=== PATIENT | female | born 1965 | race Caucasian/White ===

== ENCOUNTER 2022-07-14 15:44 | Emergency (ER) | payer MEDICAID ==
[~2022-07-14] VITALS: Ht 165.1 cm; Wt 68.0 kg
[~2022-07-14 15:44] MED LIST: DOCU250C14 PO; HYDR-3917 PO; IBUP-1969 PO; LIDO1ADH71 TD; ONDA-8 TL
[2022-07-14 16:09] VITALS: BP_SYST 92
[2022-07-14 17:51] LABS: BASOPHILS # (AUTO) 0.1 K/uL (0.0-0.2); BASOPHILS % (AUTO) 0.3 % (0.0-2.0); EOSINOPHILS # (AUTO) 0.2 K/uL (0.0-0.4); EOSINOPHILS % (AUTO) 1.2 % (0.0-4.0); HEMATOCRIT 33.3 % (36-48); HEMOGLOBIN 11.4 g/dL (12.0-16.0); LYMPHOCYTES % (AUTO) 11.9 % (20.5-51.5); MEAN CORPUSCULAR HEMOGLOBIN 31 pg (27-31); MEAN CORPUSCULAR HGB CONC 34 % (32-36); MEAN CORPUSCULAR VOLUME 90 fL (79.0-98.0); MONOCYTES # (AUTO) 1.5 K/uL (0.0-1.0); MONOCYTES % (AUTO) 9.2 % (1.7-9.3); NEUTROPHILS # (AUTO) 12.9 K/uL (1.8-7.7); NEUTROPHILS % (AUTO) 77.4 % (40.0-70.0); PLATELET COUNT (AUTO) 373 K/uL (130-430); RED BLOOD CELL COUNT(AUTO) 3.72 MIL/uL (4.2-6.2); RED CELL DISTRIBUTION WIDTH 12.6 % (9.0-15.0); WHITE BLOOD COUNT (AUTO) 16.7 K/uL (4.8-10.8)
[2022-07-14 18:00] LABS: INR 1.1 (0.8-1.2); PROTHROMBIN TIME 11.3 SECS (9.5-12.5)
[2022-07-14 18:32] LABS: ALBUMIN 2.5 g/dL (3.4-4.8); CALCIUM 9.7 mg/dL (8.4-11.0); CREATININE 0.43 mg/dL (0.55-1.30); TOTAL BILIRUBIN 0.6 mg/dL (0.0-1.0)
[2022-07-14 18:58] LABS: BILIRUBIN,URINE NEGATIVE (NEGATIVE); CLARITY/URINE CLOUDY (CLEAR); COLOR,URINE YELLOW (YELLOW); GLUCOSE,URINE NEGATIVE (NEGATIVE); KETONES,URINE NEGATIVE (NEGATIVE); LEUKOCYTE ESTERASE ,URINE 3+ (NEGATIVE); NITRITE, URINE POSITIVE (NEGATIVE); PH,URINE 7.5 (5.0-8.0); PROTEIN URINE NEGATIVE (NEGATIVE); UROBILINOGEN,URINE 0.2 (0.2-1.0)
[2022-07-14 19:01] LABS: BLOOD, URINE TRACE (NEGATIVE)
[2022-07-14 19:09] LABS: BACTERIA,URINE MANY /HPF (None Seen); MUCUS,URINE None Seen /LPF (None Seen); RBC,URINE NONE SEEN /HPF (0-3); WBC,URINE 20-50 /HPF (0-3)
[2022-07-14] MEDS ORDERED: cefTRIAXone 1 GM in LIDOCAINE 1%, 20 ML MDV 2.1 ML IM ONE (19:15)
[2022-07-14] MEDS ORDERED: NITR-85 PO (19:19)
[2022-07-14 21:43] VITALS: BP_SYST 101
== END 2022-07-14 21:37 | disposition home or self-care (01) ==
LOC: SED 15:44
DX: N39.0 Urinary tract infection, site not specified (principal); R79.9 Abnormal finding of blood chemistry, unspecified; Z79.899 Other long term (current) drug therapy
CPT/HCPCS: 99284; 71045; 80053; 81000; 84703; 85025; 85610; 85730; 86140; 87086; 36415; 96372; 83605; J0696; J2001

== ENCOUNTER 2023-11-01 14:26 | Emergency (ER) | payer MEDICAID ==
[~2023-11-01] VITALS: Ht 172.7 cm; Wt 74.8 kg
[2023-11-01 14:26] VITALS: BP_SYST 127; PULSE 95; RESP 18; TEMP 96.8; O2SAT 97
[~2023-11-01 14:26] MED LIST changes: +ACET325T39 PO; +BISA10SU61 RC; +CHOL20004 PO; +DOCU100T9 PO; -DOCU250C14 PO; +GABA-529 PO; -IBUP-1969 PO; +LEVO25CA4 PO; -LIDO1ADH71 TD; +MAGN400T7 PO; +METO-304 PO; +MOM PO; +MULT15TA3 PO; -ONDA-8 TL; +POTA-80 PO; +PRO40 PO; +SENN8.6T19 PO; +THIA100T73 PO; +TIZA-185 PO
[2023-11-01] MEDS: TETRACAINE HCL/PF 0.5% OPHTHALMIC DROPS 4 ML OP ONE (15:57)
[2023-11-01 17:36] VITALS: BP_SYST 125; PULSE 95; RESP 16; O2SAT 97
== END 2023-11-01 16:54 ==
LOC: SED 14:26
DX: H57.89 Other specified disorders of eye and adnexa (principal); I10 Essential (primary) hypertension; Z79.899 Other long term (current) drug therapy; Z79.2 Long term (current) use of antibiotics
CPT/HCPCS: 99283